=== PATIENT | female | born 1980 | race African-American/Black ===

== ENCOUNTER 2016-11-15 19:52 | Emergency (ER) | payer OTHER ==
[~2016-11-15 19:52] MED LIST: ALBUTEROL17 GM; ALBUTEROL17 GM INH; AMOXICILLIN PO; COZAAR; DEPO-PROVE150 MG/1 M IM; FLEXERIL10 MG PO; IBUPROFEN PO; LEXAPRO PO; SEROQUEL PO; VICODIN 5/1 TAB 5/50 PO
== END 2016-11-15 22:00 | disposition home or self-care (01) ==
LOC: CFTX 19:52
DX: S61.412A Laceration without foreign body of left hand, initial encounter (principal); I10 Essential (primary) hypertension; J45.909 Unspecified asthma, uncomplicated; F17.210 Nicotine dependence, cigarettes, uncomplicated; Z23 Encounter for immunization; W27.8XXA Contact with other nonpowered hand tool, initial encounter; Y92.009 Unspecified place in unspecified non-institutional (private) residence as the place of occurrence of the external cause
CPT/HCPCS: 12001; 90471; 90715; 99283